=== PATIENT | male | born 1970 | race Hispanic/Latino ===

== ENCOUNTER → 2024-05-22 | Outpatient (REF) | payer BC | LOC: RESP 13:43 → EDSTATUS 15:00 | PROVIDERS: ATTEND Internal Medicine Critical Care Medicine | DX: R06.02 Shortness of breath (principal); M06.9 Rheumatoid arthritis, unspecified; Z86.16 Personal history of COVID-19 | CPT/HCPCS: 94060; 94727; 94729 ==